=== PATIENT | male | born 1945 | race Caucasian/White ===

== ENCOUNTER 2020-07-28 13:25 | Outpatient (CLI) | payer MEDICARE, OTHER, SELFPAY ==
--- NOTE | ~2020-07-28 | CT_ITS ---
EXAMINATION: CT abdomen pelvis wo con DATE: 07/28/2020 14:01 INDICATION: Kidney calculus TECHNIQUE: Computed tomography (CT) of the abdomen and pelvis was performed without intravenous contr ast. Automated exposure control and iterative reconstruction technique were employed. Exam dose: 411 .04 mGy-cm total exam DLP. COMPARISON: April 27, 2021 KUB 12/28/[address] abdomen pelvis FINDINGS: Mild discoid atelectasis or scarring at the left lung base. The lung bases otherwise are cl ear. Coronary artery atherosclerosis. Trace pericardial fluid. No pleural effusion. Very small sliding hiatal hernia. Two stones are again noted in the dependent aspect of the gallbladder near the gallbladder neck. No g allbladder wall thickening or pericholecystic fluid or stranding. No bile duct dilatation. No hepatic space-occupying mass lesion. Normal splenic size. No pancreatic mass lesion or calcification or ductal dilatation. Normal morphology of the adrenal glands. Faint pinpoint nonobstructing lower pole right renal calculus. 4.5 mm nonobstructing upper pole left renal calculus. No ureteral calculus or hydronephrosis is noted on either side. There is moderate thickening of the urinary bladder wall. There is prostate enlargement and calcifica tion. There is extensive abdominal aortic calcification but no abdominal aortic aneurysm. There is calcific ation of the iliac and femoral arteries. No intraperitoneal or retroperitoneal or pelvic mass lesion or adenopathy or ascites. Small jay fat-containing left inguinal hernia. There is diverticula of the sigmoid and descending colon; no CT evidence of diverticulitis. No bowel obstruction, bowel wall thickening, pneumatosis or intraperitoneal free air is detected. Some fluid l evels are present in the right colon. Right hip arthroplasty. No suspicious osteolytic or osteoblastic lesions are noted. IMPRESSION: Cholelithiasis Nonobstructing calculus of each kidney; no ureteral calculus or hydroureteronephrosis Prostatomegaly and calcification and mild diffuse thickening of the urinary bladder wall Diverticulosis of the left colon; no CT evidence of diverticulitis Very small sliding hiatal hernia Reviewed, dictated and finalized at [facility]. Reviewed, dictated and finalized at location A. ORKING ADMINISTRATOR IMPRESSION: Cholelithiasis Nonobstructing calculus of each kidney; no ureteral calculus or hydroureteronep hrosis Prostatomegaly and calcification and mild diffuse thickening of the urinary jocelyn dder wall Diverticulosis of the left colon; no CT evidence of diverticulitis Very small sliding hiatal hernia
--- NOTE | ~2020-07-28 | XR_ITS ---
XR abdomen/kub 1V DATE: 07/28/2020 13:49 INDICATION: Kidney calculus TECHNIQUE: AP projection, 2 views COMPARISON: 05/17/2011 KUB July 28, [address] abdomen FINDINGS: An approximately 3 mm calcified stone is noted overlying the upper pole left kidney. A smal l calcification overlying the medial upper pole of the left kidney is likely due to to left renal art erial calcification. Very faint small calcification overlying the lower pole the right kidney likely corresponds to the pi npoint lower pole right renal calculus noted on the current CT examination. No other apparent urinary tract calcified calculus is noted. There are bilateral calcified pelvic phl eboliths and sacroiliac or any calcifications. There are 2 approximately 6-7 mm calcified gallstones. The psoas shadows are intact. No visceromegaly is evident. There is no evidence of bowel obstruction. Right bipolar hip prosthesis. IMPRESSION: Cholelithiasis Small nonobstructing upper pole left renal calcified calculus Very small faint calcified calculus of the lower pole of the right kidney Reviewed, dictated and finalized at [facility]. Reviewed, dictated and finalized at [facility]. ICE EMPLOYEE
== END 2020-07-28 13:26 | disposition home or self-care (01) ==
LOC: ANHIMG 13:34
PROVIDERS: Visit Provider Urology
DX: N20.0 Calculus of kidney (principal); K80.20 Calculus of gallbladder without cholecystitis without obstruction; K44.9 Diaphragmatic hernia without obstruction or gangrene; K57.30 Diverticulosis of large intestine without perforation or abscess without bleeding; N40.0 Benign prostatic hyperplasia without lower urinary tract symptoms
CPT/HCPCS: 74018; 74176

== ENCOUNTER 2022-01-04 12:20 | Outpatient (CLI) | payer MEDICARE, OTHER, SELFPAY ==
--- NOTE | ~2022-01-04 | XR_ITS ---
XR shoulder LT min 2V DATE: 01/04/2022 12:45 INDICATION: Left shoulder pain; injury 6 weeks ago TECHNIQUE: 4 views COMPARISON: None FINDINGS: There are prominent chronic calcifications in the region of the rotator cuff suggesting meredith cific tendinitis. There is mild degenerative change at the acromion clavicular joint. There is mild osteoarthritis at t he glenohumeral joint. No fracture, dislocation, periosteal reaction or bone destruction is detected. IMPRESSION: Suggestion of prominent calcific tendinitis of left rotator cuff Mild degenerative change at the left acromioclavicular joint Mild left glenohumeral osteoarthritis Reviewed, dictated and finalized at location [facility].
== END 2022-01-04 12:21 | disposition home or self-care (01) ==
PROVIDERS: PCP Family Medicine; Visit Provider Physician Assistant Surgical
DX: M25.512 Pain in left shoulder (principal); M19.012 Primary osteoarthritis, left shoulder
CPT/HCPCS: 73030

== ENCOUNTER → 2022-08-30 10:32 | Outpatient (CLI) | payer MEDICARE, OTHER, SELFPAY ==
--- NOTE | ~2022-08-30 | MR_ITS ---
EXAMINATION: MR shoulder LT wo con DATE: 08/30/2022 11:10 INDICATION: Left shoulder pain. TECHNIQUE: Magnetic resonance imaging (MRI) of the left shoulder was performed without intravenous co ntrast. Sequences included axial PD-weighted FS FSE, coronal oblique PD-weighted FS FSE and T2-weight ed FS FSE, and sagittal oblique T2-weighted FS FSE and T1-weighted FSE. COMPARISON: Left shoulder radiographs 08/18/2022 FINDINGS: Coracoacromial arch: The acromion undersurface is flat in morphology (type I). There is severe acromioclavicular joint ost eoarthritis including inferiorly directed osteophytes. There is mild subacromial/subdeltoid bursitis. Rotator cuff: There is mild supraspinatus and infraspinatus tendinopathy. There are calcifications of the supraspin atus tendon. Teres minor tendon is normal. Subscapularis tendon is normal. The rotator cuff muscle be llies are normal. Biceps tendon and glenoid labrum: Biceps tendon is in bicipital groove. There is mild intra-articular biceps tendinopathy. There are de generative tears of the glenoid labrum. Fluid: There is a small glenohumeral joint effusion. Bones/cartilage: There is shallow partial-thickness cartilage loss of glenoid. There is deep partial thickness cartila ge loss of humeral head involving the central articular surface. IMPRESSION: 1. Mild rotator cuff tendinopathy. Calcific tendinitis of supraspinatus tendon. 2. Moderate glenohumeral joint chondrosis. 3. Mild intra-articular biceps tendinopathy. 4. Severe acromioclavicular joint osteoarthritis. 5. Small glenohumeral joint effusion. 6. Mild subacromial/subdeltoid bursitis. Reviewed, dictated and finalized at location A. R CHEF
== END ==
PROVIDERS: PCP Family Medicine; Visit Provider Physician Assistant Surgical
DX: M19.012 Primary osteoarthritis, left shoulder (principal); M75.52 Bursitis of left shoulder
CPT/HCPCS: 73221

== ENCOUNTER → 2022-11-01 12:03 | Outpatient (CLI) | payer MEDICARE, OTHER, SELFPAY | PROVIDERS: PCP Family Medicine; Visit Provider Physician Assistant Medical | DX: M79.671 Pain in right foot (principal) | CPT/HCPCS: 73630 ==

== ENCOUNTER → 2023-05-11 12:28 | Outpatient (CLI) | payer MEDICARE, OTHER, SELFPAY ==
--- NOTE | ~2023-05-11 | XR_ITS ---
Clinical Indication: Osteoarthritis PA and lateral views of the chest: Comparison: 10/17/2018 Findings: The lungs are clear, without evidence of focal consolidation or pleural effusion. Cardiome diastinal silhouette is within normal limits. Bones and soft tissues are unremarkable. Impression: Normal chest. Reviewed, dictated and finalized at [facility]. GHT CAR REPAIRER Impression: Normal chest.
--- NOTE | ~2023-05-11 | XR_ITS ---
XR hand BI arthritis min 3V DATE: 05/11/2023 13:17 INDICATION: Polyarthralgia. Osteoarthritis. TECHNIQUE: 4 views of each hand. COMPARISON: None FINDINGS: Left hand: There is mild particular spurring at the first carpometacarpal and second and third metacarpophalange al joints. There is mild particular spurring at the interphalangeal joint of the first digit. There i s narrowing at the distal interphalangeal joints. Benign cyst of proximal navicular bone. No fracture, dislocation, periosteal reaction or bone destruction or erosive change or chondrocalcino sis is noted. Right hand: There is moderately prominent joint space narrowing and mild periarticular spurring at the third meta carpophalangeal joint consistent with osteoarthritis. There is narrowing between the navicular and ca pitate bones. There is narrowing at the distal interphalangeal joint of the fifth digit. Benign cyst of the lateral head of the third metacarpal bone. No fracture, dislocation, periosteal reaction or bone destruction, erosive change or chondrocalcinosi s. IMPRESSION: Bilateral osteoarthritis Reviewed, dictated and finalized at location B. ERYMAN ASSISTANT IMPRESSION: Bilateral osteoarthritis
== END ==
DX: R76.8 Other specified abnormal immunological findings in serum (principal); M25.60 Stiffness of unspecified joint, not elsewhere classified; M19.041 Primary osteoarthritis, right hand; M19.042 Primary osteoarthritis, left hand
CPT/HCPCS: 71046; 73130

== ENCOUNTER 2023-11-28 14:29 | Outpatient (CLI) | payer MEDICARE, OTHER, SELFPAY ==
--- NOTE | ~2023-11-28 | XR_ITS ---
Lumbosacral Spine: AP, oblique, and lateral views Clinical History: Pain Findings: The normal lordotic curve is maintained. The vertebral bodies and posterior elements are i ntact. The intervertebral disc spaces are preserved. There is advanced facet arthropathy throughout the lumbar spine, especially from L3 through S1. The sacroiliac joints are normally outlined. Round c alcific structures in the right mid abdomen suggests gallstones or possibly renal stones. Impression: Advanced facet arthropathy, as above. Suspected gallstones or possibly right renal stones. Reviewed, dictated and finalized at location [facility]. Impression: Advanced facet arthropathy, as above. Suspected gallstones or possibly right renal stones.
== END 2023-11-28 14:30 ==
LOC: MICIMG 14:31
PROVIDERS: PCP Family Medicine; Visit Provider Physician Assistant Medical
DX: M47.897 Other spondylosis, lumbosacral region (principal)
CPT/HCPCS: 72110

== ENCOUNTER 2024-09-10 13:00 | Outpatient (CLI) | payer MEDICARE, OTHER, SELFPAY ==
--- NOTE | ~2024-09-10 | XR_ITS ---
XR elbow LT 2V Ordering provider: Sarahi Pelletier PA-C History: . S51.009A - Unspecified open wound of unspecified elbow, i... . Comparison: None. FINDINGS: BONES: No acute fracture or dislocation. JOINT SPACES: Normal. SOFT TISSUES: Air with soft tissue swelling is seen in the subcutaneous tissues posteriorly which may indicate laceration. No definite joint effusion. IMPRESSION: No acute osseous abnormality left elbow. Reviewed, dictated and finalized at location A.
== END 2024-09-10 13:01 | disposition home or self-care (01) ==
PROVIDERS: PCP Family Medicine; Visit Provider Student in an Organized Health Care Education/Training Program
DX: S51.002A Unspecified open wound of left elbow, initial encounter (principal); X58.XXXA Exposure to other specified factors, initial encounter
CPT/HCPCS: 73070

== ENCOUNTER 2024-10-23 08:50 | Outpatient (CLI) | payer MEDICARE, OTHER, SELFPAY ==
--- NOTE | 2024-10-23 08:58 | ECG_ITS ---
Test Date: 2024-10-23 09:11:06 Measurements Intervals Davis Rate: 84 P: 20 CA: 177 QRS: -18 QRSD: 82 T: 94 QT: 332 QTc: 393 Interpretive Statements SINUS RHYTHM WITH OCCASIONAL SUPRAVENTRICULAR PREMATURE COMPLEXES LOW QRS VOLTAGE IN PRECORDIAL LEADS [QRS DEFLECTION < 1.0 mV IN CHEST LEADS] INFERIOR MYOCARDIAL INFARCTION [40+ ms Q WAVE AND/OR ST/T ABNORMALITY IN II/aVF], PROBABLY OLD ANTEROSEPTAL MYOCARDIAL INFARCTION [40+ ms Q WAVE IN V1-V4], OF INDETERMINATE AGE WARNING: DATA QUALITY MAY AFFECT INTERPRETATION No previous ECG available for comparison Electronically Signed On 10-24-2024 18:57:48 CDT by Tristan Anna
--- OUTSIDE RECORDS SUMMARY | 2024-10-23 09:06 | XMS_ITS | Clinical Summary ---
Author Organization [facility] Address [facility] [facility] [place] [address] Care Team Providers Care Senior Cognos Developer Name Role Phone Michelle Garcia MD Primary Care Provider [phone] eDnnis Christian MD Unavailable Source Comments [facility],non-owned Affiliates and Associated Physician Practices is amultiple site organization consisting of ambulatory clinics and hospital sitesin [place], [place], [place] and [place]. This disclosure is being madepursuant to the Care Everywhere program and may not contain all information available regarding this patient. Last updated 18.[facility] Allergies No known active allergies Medications * Be aware that medications may not be up to date on this document. Alwaysverify current medications with the patient. Nutritional Supplements (STATINS SUPPORT PO) Active benzonatate (TESSALON) 200 MG capsuleIndications :Acute URI Take 1 capsule by mouth 3 times daily as needed for Cough 30 capsule 05/26/20 17 Active Additional Information Patient not taking.Reported on 07/07/2024 fluticasone propionate (FLONASE) 50 MCG/ACT nasal sprayIndications:A cute URI Douglas 2 sprays into each nostril once daily 1 bottles 05/26/20 17 Active Tamsulosin HCl (FLOMAX PO) Active DOXAZOSIN MESYLATE PO Active Citalopram Hydrobromide (CELEXA PO) Active ALLOPURINOL PO Activ e benzonatate (TESSALON) 200 MG capsule Take 1 capsule by mouth 3 times daily as needed for Cough 30 capsule 05/07/20 19 Active Additional Information Patient not taking.Reported on 07/07/2024 amoxicillin (Amoxil) 500 MG capsule 10/26/19 23 Active colchicine 0.6 MG tablet 12/06/19 23 Active Farxiga 10 MG tablet Take 1 (one) tablet by mouth once daily 09/25/19 24 Active finasteride (Proscar) 5 MG tablet Take 1 (one) tablet by mouth at bedtime 07/17/19 24 Active OneTouch Ultra test strip USE TO CHECK BLOOD SUGAR EVERY DAY 07/12/19 24 Active metFORMIN ER 24hr (Glucophage XR) 500 MG tablet 09/23/19 24 Active rosuvastatin (Crestor) 20 MG tablet 08/29/19 24 Active triamcinolone acetonide (Kenalog) 0.1 % cream APPLY TOPICALLY TO THE AFFECTED AREA TWICE DAILY 01/15/20 24 Active predniSONE (Deltasone) 10 MG tablet 40mg po daily x3, then 30mg po daily x3, then 20mg po daily x3, then 10mg po daily x3. 30 tablet 01/30/20 24 Active Additional Information Patient not taking.Reported on 07/07/2024 indapamide (Lozol) 2.5 MG tablet TAKE 1 TABLET BY MOUTH DAILY IN THE MORNING 04/26/20 24 Active clobetasol (Temovate) 0.05 % ointment APPLY TOPICALLY TO THE AFFECTED AREA TWICE DAILY 06/05/20 24 Active doxycycline hyclate (Vibramycin) 100 MG capsule 04/29/20 24 Active mupirocin (Bactroban) 2 % ointment APPLY TOPICALLY TO THE AFFECTED AREA TWICE DAILY 04/10/20 24 Active lisinopril (Prinivil; Zestril) 20 MG tablet Take 1 (one) tablet by mouth once daily 04/16/20 24 Active celecoxib (CeleBREX) 100 MG capsuleIndications :Polyarthralgia,Isela int stiffness,Osteoart hritis of multiple joints, unspecified osteoarthritis type TAKE 1 CAPSULE BY MOUTH TWICE DAILY 60 capsule 2 07/22/19 25 Active Active Problems No known active problems Family History Medical History Relation Name Comments CVA Father Relation Name Status Comments Father Mother Social History Tobacco Use Types Packs/Day Years Used Date Smoking Tobacco: Former Pipe Q uit: 1974 Smokeless Tobacco: Never PHQ-2 Answer Date Recorded Patient Health Questionnaire-2 Score 0 01/30/2024 Sex and Gender Information Value Date Recorded Sex Assigned at Not on file Legal Sex Male 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 Gender Identity Not on file Sexual Orientation Not on file Last Filed Vital Signs Vital Sign Reading Time Taken Comments Blood Pressure 132/70 07/07/2024 11:23 AM BANQUET KITCHEN SUPERVISOR Pulse 96 07/07/2024 11:23 AM BANQUET KITCHEN SUPERVISOR Temperature 37.3 C (99.1 F) 05/07/2019 11:38 AM BANQUET KITCHEN SUPERVISOR Respiratory Rate 18 07/07/2024 11:23 AM BANQUET KITCHEN SUPERVISOR Oxygen Saturation 98% 07/07/2024 11:23 AM BANQUET KITCHEN SUPERVISOR Inhaled Oxygen Concentration - - Weight 96.2 kg (212 lb) 07/07/2024 11:23 AM BANQUET KITCHEN SUPERVISOR Height 172.7 cm (5' 8 ) 07/07/2024 11:23 AM BANQUET KITCHEN SUPERVISOR Body Mass Index 32.23 07/07/2024 11:23 AM BANQUET KITCHEN SUPERVISOR Plan of Treatment Upcoming Encounters Date Type Department Care Team (Late st Contact Info) Description 11/05/2024 11:00 AM CDT Office Visit [facility] - Rheumatology [address] [place] [address] [place] [id number] [facility] [address] [place] [address] Health Maintenance Due Date Last Done Comments MEDICARE AWV 12 MONTHS 1945 DTAP/TDAP/TD VACCINES (1 - Tdap) 01/07/1964 PNEUMOCOCCAL VACCINE 50+ (1 of 1 - PCV) 1995 ZOSTER VACCINE (1 of 2) 1995 Respiratory Syncytial Virus (RSV) Vaccine Pt: or over 60 yrs (1 - 1-dose 75+ series) 01/07/2020 COVID-19 VACCINE (3 - 2023-2 5 season) 2024 08/23/2020, 07/26/2020 DEPRESSION SCREENING 06/25/2024 01/30/2024 INFLUENZA VACCINE (Season Ended) 2025 05/22/2007, 06/06/2006 HEPATITIS B VACCINE Aged Out No longe r eligible based on patient's age to complete this topic HIB VACCINE Aged Out No longer eligi ble based on patient's age to complete this topic HPV VACCINE Aged Out No longer eligi ble based on patient's age to complete this topic MENINGOCOCCAL (Group B) VACCINE SHARED DECISION-MAKING Aged Out No longer eligible based on patient's age to complete this topic MENINGOCOCCAL GROUPS A/C/Y/W VACCINE Aged Out No longer eligible b ased on patient's age to complete this topic Insurance MEDIC[place] [id number] [facility] Care Teams Senior Cognos Developer Relationship Specialty Start Date End Date Michelle Garcia MD [address] [place], [place] [id number] PCP - General Family Medicine 7/31/23 [place] [address] [place] [id number] Rheumatology 10/01/23
--- OUTSIDE RECORDS SUMMARY | 2024-10-23 09:06 | XMS_ITS | Encounter Summary ---
Author Organization [facility] Address [address] [place] [address] Care Team Providers Care Service Specialist Name Role Phone Michelle Garcia MD Primary Care Provider [phone] Dennis Christian MD Unavailable Encounter Details Date Type Department Care Team (Late Contact Info) Description 05/26/2024 Lab Requisition [facility] - DermPath Lab [address] [place] [phone] [place] [address] [address] Social History Tobacco Use Types Packs/Day Years Used Date Smoking Tobacco: Former Pipe Q uit: 1975 Smokeless Tobacco: Never PHQ-2 Answer Date Recorded Patient Health Questionnaire-2 Score 0 01/30/2024 Sex and Gender Information Value Date Recorded Sex Assigned at Not on file 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 Gender Identity Not on file Sexual Orientation Not on file documented as of this encounter Plan of Treatment Upcoming Encounters Date Type Department Care Team (Late Contact Info) Description 11/05/2024 11:00 AM CDT Office Visit [facility] - Rheumatology [address] [address] [place] [address] [address] documented as of this encounter Procedures Procedure Name Priority Date/Time Associated Diagnosis Comments DERMATOPATHOLOGY Routine 05/21/2024 3:33 AM METAL FITTER documented in this encounter Results * DERMATOPATHOLOGY (05/21/2024 3:33 AM METAL FITTER) Case Report Dermatopathology Report Case: [id number] Authorizing Provider: Arnold Hahn MD Collected: 05/21/2024 03:33 AM Ordering Location: [facility] - Received: 05/26/2024 02:02 PM DermPath Lab Pathologist: Harleen Mckinney MD Specimens: A) - Skin, left proximal forearm B) - Skin, left distal forearm C) - Skin, right lateral elbow 4 2:03 PM [facility] Final Diagnosis Specimen A. SKIN, left proximal forearm: SPONGIOTIC DERMATITIS IN ASSOCIATION WITH HEALING SKIN CHANGES (L30.8) (see microscopic description and comment) Specimen B. SKIN, left distal forearm: HYPERKERATOSIS, MILD PAPILLOMATOSIS, AND ACANTHOSIS (L82.1) (see microscopic description and comment) Specimen C. 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 The specimen consists of a punch biopsy measuring 4x4x5 mm. Jar 0. Specimen B: Received is one formalin filled container labeled with the patient's name and designated left distal forearm. The specimen consists of a punch biopsy measuring 4x4x3 mm. Jar 0. Specimen C: Received is one formalin filled container labeled with the patient's name and designated right lateral elbow. The specimen consists of a shave biopsy measuring 8x7x1 mm. Jar 0. 4 2:03 PM [facility] Microscopic Description Specimen A. SKIN, left proximal forearm: There is hyperkeratosis and mild spongiosis of the epidermis. In the dermis there is a mainly superficial perivascular lymphoid infiltrate. Eosinophils are not seen. Grocott's methenamine silver (GMS) stain is negative for fungal elements in the sections examined. CD3 highlights T cells, that show a CD4:CD8 ratio of approximately 3:1. There is epidermal hyperplasia beneath which there are vascular proliferation, fibroblasts, and an edematous stroma. COMMENT: The histologic differential diagnosis includes an eczematous dermatitis, and changes consistent with healing skin. The immunoprofile of the T cell infiltrate does not support a diagnosis of cutaneous T-cell lymphoma; however, if there is continued clinical concern for cutaneous T-cell lymphoma consideration should be given to a re biopsy of a sun protected area that has not been treated for two to three weeks. Specimen B. SKIN, left distal forearm: Sections show hyperkeratosis, papillomatosis, hypergranulosis, and acanthosis. Grocott's methenamine silver (GMS) stain is negative for fungal elements in the sections examined. COMMENT: If these histologic features represent a more localized process, these histological findings can be seen in a verruca vulgaris or a seborrheic keratosis. If they represent a more diffuse process, the histologic differential diagnosis includes lichen simplex chronicus, acanthosis nigricans, and confluent and reticulated papillomatosis of Gougerot and Carteaud (CARP). Clinical correlation is recommended. Specimen C. SKIN, right lateral elbow: The epidermis is mildly acanthotic. There is a lichenoid infiltrate with vacuolar changes of basilar keratinocytes and scattered necrotic keratinocytes. Sections show abundant melanin within melanophages around the superficial vascular plexus. In addition, in the thickened papillary dermis, there are collections of eosinophilic homogeneous material that is highlighted by high molecular weight cytokeratin and is focally positive with Congo Red stain. COMMENT: The histologic differential diagnosis includes a lichen planus-like keratosis with prominent colloid bodies, and lichen amyloidosis. Clinical correlation is recommended. 4 2:03 PM [facility] Disclaimer An external and internal positive and negative controls are appropriate for the histochemical, immunohistochemical and immunofluorescence stain(s) in this case (if any), except where stated explicitly. The performance characteristics of the stain(s) cited in this report were developed and its performance characteristic determined by the Dermatopathology Laboratory at [facility] directed by Dr. Santos Savage. These tests need not be, and therefore are not, approved by the [place] Food and Drug Administration. The tests are used for clinical purposes. Billing Codes Specimen Charges Stain Charges 31781 80578 79354 1 1 1 92833 67830 52792 74518 01380 66451 29401 1 1 1 1 1 1 1 4 2:03 PM [facility] Embedded Images 4 2:03 PM [facility] Pathology/Cytology TISSUE SPECIMEN FROM SKIN / Unknown 05/21/2024 3:33 AM METAL FITTER 05/26/2024 2:02 PM METAL FITTER Miscellaneous samples (specimen) TISSUE SPECIMEN FROM SKIN / Unknown 05/21/2024 3:33 AM METAL FITTER 05/26/2024 2:02 PM METAL FITTER Miscellaneous samples (specimen) TISSUE SPECIMEN FROM SKIN / Unknown 05/21/2024 3:33 AM METAL FITTER 05/26/2024 2:02 PM METAL FITTER Arnold Hahn MD LAB - PATHOLOGY/CYTOLOGY O RDERABLES Final Result DERMATOPATHOLOGY LABORATORY [facility] - Department of Dermatology [facility] [address] [place] [address], [address] [phone] documented in this encounter Visit Diagnoses Not on filedocumented in this encounter Care Teams Service Specialist Relationship Specialty Start Date End Date Michelle Garcia MD [address] [place] [address] PCP - General Family Medicine 01/22/23 [place] [address] [place] [phone] Rheumatology 10/01/23 documented as of this encounter
--- OUTSIDE RECORDS SUMMARY | 2024-10-23 09:06 | XMS_ITS | Encounter Summary ---
Author Organization [facility] Address [address] [facility] [place] [address] Care Team Providers Care Urgent Care Physician Name Role Phone Michelle Garcia MD Primary Care Provider [phone] Dennis Christian MD Unavailable Encounter Details Date Type Department Care Team (Late st Contact Info) Description 05/09/2024 Lab Requisition [facility] - DermPath Lab [address] [place] [phone] [place] [address] [address] Social History Tobacco Use Types Packs/Day Years Used Date Smoking Tobacco: Former Pipe Q uit: 1975 Smokeless Tobacco: Never PHQ-2 Answer Date Recorded Patient Health Questionnaire-2 Score 0 01/30/2024 Sex and Gender Information Value Date Recorded Sex Assigned at Not on file 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 Gender Identity Not on file Sexual Orientation Not on file documented as of this encounter Plan of Treatment Upcoming Encounters Date Type Department Care Team (Late Contact Info) Description 11/05/2024 11:00 AM CDT Office Visit [facility] - Rheumatology [address] [address] [place] [address] [address] documented as of this encounter Procedures Procedure Name Priority Date/Time Associated Diagnosis Comments DERMATOPATHOLOGY Routine 05/08/2024 3:33 AM TURBINE ROOM ATTENDANT documented in this encounter Results * DERMATOPATHOLOGY (05/08/2024 3:33 AM TURBINE ROOM ATTENDANT) Case Report Dermatopathology Report Case: [id number] Authorizing Provider: Arnold Hahn MD Collected: 05/08/2024 03:33 AM Ordering Location: [facility] - Received: 05/09/2024 01:30 PM DermPath Lab Pathologist: Harleen Mckinney MD Specimen: Skin, left proximal forearm 1:44 PM [facility] Final Diagnosis Specimen A. SKIN, left proximal forearm: ULCER WITH UNDERLYING DERMAL ABSCESS (L98.499) (see microscopic description and comment) 1:44 PM [facility] DERMAT[facility]ATHOLOGY [facility] Clinical History Rash; R/O Eczema, Contact Dermatitis, CTCL, Bullous Pemphigoid 1:44 PM [facility] Gross Description Specimen A: Received is one formalin filled container labeled with the patient's name and designated left proximal forearm. The specimen consists of a punch biopsy measuring 4x4x3 mm. Jar 0. 1:44 PM [facility] Microscopic Description Specimen A. SKIN, left proximal forearm: There is an ulcer, beneath which there are vascular proliferation, fibroblasts, and an edematous stroma. Sections also show a collection of neutrophils in the dermis. Scattered lymphocytes and histiocytes are also present in the dermis. Eosinophils are not seen. Some of the neutrophils focally infiltrate dermal vascular lamar, favored to be secondary to adjacent abscess and ulceration. Tissue Gram stain is negative for bacteria in the sections examined. Grocott's methenamine silver (GMS) stain fails to highlight fungal elements in the available sections. Additional deeper sections were obtained and reviewed. COMMENT: The clinical images provided by the clinician are reviewed. The histologic differential diagnosis includes an infectious process despite negative Gram and GMS stains, a ruptured follicle or cyst, and less likely a neutrophilic dermatosis. Clinical correlation with culture is recommended if clinically indicated. The characteristic features of bullous pemphigoid are not seen in this specimen; however, if clinical concern for an autoimmune bullous disease persists, consideration could be given to submitting tissue for direct immunofluorescence. This case was also reviewed by Dr. Anna Woods, who agrees. Additional deeper sections were obtained and reviewed. 1:44 PM [facility] Disclaimer An external and internal positive and negative controls are appropriate for the histochemical, immunohistochemical and immunofluorescence stain(s) in this case (if any), except where stated explicitly. The performance characteristics of the stain(s) cited in this report were developed and its performance characteristic determined by the Dermatopathology Laboratory at [facility], directed by Dr. Santos Savage. These tests need not be, and therefore are not, approved by the [place] Food and Drug Administration. The tests are used for clinical purposes. Billing Codes Specimen Charges Stain Charges 89769 1 86040 55327 1 1 4 1:44 PM [facility] Embedded Images 1:44 PM [facility] Pathology/Cytolo gy TISSUE SPECIMEN FROM SKIN / Unknown 05/08/2024 3:33 AM TURBINE ROOM ATTENDANT 05/09/2024 1:30 PM TURBINE ROOM ATTENDANT Arnold Hahn MD LAB - PATHOLOGY/CYTOLOGY O CRUZ Final Result DERMATOPATHOLOGY LABORATORY [facility] - Department of Dermatology [facility] Specialized Medicine [address] [place] [address], [address] [phone] documented in this encounter Visit Diagnoses Not on filedocumented in this encounter Care Teams Urgent Care Physician Relationship Specialty Start Date End Date Michelle Garcia MD [address] [place] [address] PCP - General Family Medicine 01/22/23 [place] [address] [place] [phone] Rheumatology 10/01/23 documented as of this encounter
--- OUTSIDE RECORDS SUMMARY | 2024-10-23 09:06 | XMS_ITS | Clinical Summary ---
Author Organization [facility] Address [address] [address] Phone Care Team Providers Care Hvac Designer Name Role Phone Rui Reyez MD Primary Care Provider [phone] Kailash Amaral DO Unavailable [phone] Allergies No known active allergies Medications polyethylene glycol (MIRALAX) Powder Use entire 255g bottle with 64oz of clear liquid as directed for colonoscopy prep. 255 g 0 6 Active atorvastatin (LIPITOR) 20 MG Tablet Take 1 Tab by mouth daily. 0 6 Active citalopram (CELEXA) 20 MG Tablet Take 1 Tab by mouth daily. 1 6 Active doxazosin (CARDURA) 4 MG Tablet Take 1 Tab by mouth nightly. 0 6 Active indapamide (LOZOL) 2.5 MG Tablet Take 1 Tab by mouth daily. 2 6 Active tamsulosin (FLOMAX) 0.4 MG Capsule Take 1 Cap by mouth daily. 0 6 Active quinapril (ACCUPRIL) 40 MG Tablet Take 1 Tab by mouth daily. 0 6 Active allopurinol (ZYLOPRIM) 300 MG Tablet Take 1 Tab by mouth daily. 0 7 Active lisinopril (ZESTRIL) 20 MG Tablet Take 20 mg by mouth daily. 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 Gender Identity Not on file Sexual Orientation Not on file Plan of Treatment Health Maintenance Due Date Last Done Comments Hepatitis C Virus (HCV) Screening 1945 Zoster Immunization (1 of 2) 1995 Pneumococcal Immunization (5 0+ years) (2 of 2 - PCV) 03/23/2017 03/23/2016 Respiratory Syncytial Virus (RSV) Immunization (Adult) (1 - 1-dose 75+ series) 01/07/2020 Influenza Immunization (#1) 2024 04/09/2019 SARS-COV-2 Immunization (2 - season) 2024 06/26/2021 DTaP/Tdap/Td Immunization Discontinued 2014, 03/28/2005 TdaP Immunization Completed 03/08/2015 Pneumococcal Immunization Combined Discontinued 03/23/2016 Colonoscopy High Risk Discontinued 06/29/2016 Colonoscopy Discontinued 06/29/2016 Colorectal Cancer Screening Discontinued Cologuard Discontinued Hepatitis B Immunization Aged Out No longer eligible based on patient's age to complete this topic Immunochemical Fecal Occult Blood Discontinued Meningococcal Immunization (ACWY) Aged Out No longer eligible based on patient's age to complete this topic Rotavirus Immunization Aged Out No lo nger eligible based on patient's age to complete this topic Procedures Procedure Name Priority Date/Time Associated Diagnosis Comments COLONOSCOPY Routine 06/29/2016 from Last 3 Months or Most Recently Relevant to Health Maintenance Results * COLONOSCOPY (06/29/2016) Rui Reyez MD PROCEDURE/MINOR SURGICAL ORDE BETSY Final Result from Last 3 Months or Most Recently Relevant to Health Maintenance Insurance MEDICARE Care Teams Hvac Designer Relationship Specialty Start Date End Date Rui Reyez MD [address] [place] [address] PCP - General Family Medicine 07/04/16 Kailash Amaral DO [address] [place] [address] Gastroenterology 07/04/16
--- OUTSIDE RECORDS SUMMARY | 2024-10-23 09:07 | XMS_ITS | Referral Summary ---
Author Organization [facility] [address] [facility] [address] Address [address] [place] [address] Care Team Providers Care Yard Pilot Name Role Phone Michelle Garcia MD Primary Care Provider [phone] Encounters Date Type Department Care Team Description 10/06/2024 Telephone [facility] Cardiology [address] [place] [address] Alan Wall MD from Last 3 Months Allergies No known active allergies Medications indapamide (LOZOL) 2.5 mg tablet TK 1 T PO QD IN THE MORNING 0 9 Active allopurinol (ZYLOPRIM) 300 mg tablet TK 1 T PO QD 0 9 Active finasteride (PROSCAR) 5 mg tablet 2 tablets (10 mg total) 3 9 Active metFORMIN XR (GLUCOPHAGE XR) 500 mg 24 hr tablet TK 4 TS PO QD WITH THE EVENING MEAL. TITRATE UP SLOWLY PER INSTRUCTIONS FOR TYPE 2 DIABETES 3 9 Active tamsulosin (FLOMAX) 0.4 mg extended release capsule 1 capsule (0.4 mg total) Active Farxiga 10 mg tablet Take 1 tablet (10 mg total) by mouth daily 4 Active lisinopriL (PRINIVIL,ZESTR [place]) 40 mg tablet Take 1 tablet (40 mg total) by mouth daily 4 Active celecoxib (CeleBREX) 100 mg capsule Take 1 capsule (100 mg total) by mouth 2 (two) times a day 4 Active rosuvastatin (CRESTOR) 20 mg tablet TAKE 1 TABLET(20 MG) BY MOUTH DAILY 90 tablet 1 5 Active Active Problems Problem Noted Date Diagnosed Date Nonrheumatic aortic valve stenosis 11/11/2018 Pulmonary hypertension 11/11/2018 Pre-operative clearance 10/23/2018 Hypertension associated with diabetes 10/23/2018 Hyperlipidemia associated with type 2 diabetes m ellitus 10/23/2018 PAC (premature atrial contraction) 10/23/2018 Abnormal ECG 10/23/2018 Systolic ejection murmur 10/23/2018 Social History Tobacco Use Types Packs/Day Years Used Date Smoking Tobacco: Never Smokeless Tobacco: Never Tobacco Cessation:Counseling Given: Not Answered Personal Safety Answer Date Recorded Getting School Help Needed Not on file 08/23 Sex and Gender Information Value Date Recorded Sex Assigned at Not on file 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:57 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 Gender Identity Not on file Sexual Orientation Not on file Last Filed Vital Signs Vital Sign Reading Time Taken Comments Blood Pressure 102/60 10/23/2023 1:04 PM CDT Pulse 84 10/23/2023 1:04 PM CDT Temperature - - Respiratory Rate 16 09/29/2020 2:00 PM CDT Oxygen Saturation 96% 10/23/2023 1:04 PM CDT Inhaled Oxygen Concentration - - Weight 95.7 kg (211 lb) 10/23/2023 1:04 PM CDT Height 172.7 cm (5' 8 ) 10/23/2023 1:04 PM CDT Body Mass Index 32.08 10/23/2023 1:04 PM CDT Plan of Treatment Not on file Procedures Procedure Name Priority Date/Time Associated Diagnosis Comments POCT LIPID PANEL Routine 09/29/2020 4:49 PM CDT Hyperlipidemia associated with type 2 diabetes mellitus (HCC) from Last 3 Months or Most Recently Relevant to Health Maintenance Results * POCT lipid panel (09/29/2020 4:49 PM CDT) Cholesterol, POC 139 mg/dL HDL, POC 25 mg/dL Triglycerides, POC 142 mg/dL LDL Cholesterol POC 86 mg/dL Non-HDL Cholesterol, POC 114 mg/dL Capillary blood 09/29/2020 4 :49 PM CDT Alan Wall MD POINT OF CARE TEST ORDERA BLES Final Result from Last 3 Months or Most Recently Relevant to Health Maintenance Insurance COMMERCIAL GENERIC MEDICARE [employer] MEDICARE COMMERCIAL GENERIC FOR LIFE Care Teams Yard Pilot Relationship Specialty Start Date End Date Michelle Garcia MD PCP - General Family Medicine 09/29/21
--- OUTSIDE RECORDS SUMMARY | 2024-10-23 09:07 | XMS_ITS | Clinical Summary ---
Author Organization [facility] [address] Address [address] [place] [address] Care Team Providers Care Development Vice President Name Role Phone Michelle Garcia MD Primary Care Provider [phone] Allergies No known active allergies Medications indapamide [...] Abnormal ECG 10/23/2018 Systolic ejection murmur 10/23/2018 Encounters Date Type Department Care Team Description 10/06/2024 Telephone [facility] Cardiology [address] [place] [address] Alan Wall MD from Last 3 Months Surgical History Surgery Date Site/Laterality Comments HERNIA REPAIR Medical History Medical History Date Comments Hyperlipidemia Heart murmur Hypertension Diabetes mellitus (HCC) Enlarged prostate Family History Medical History Relation Name Comments Stroke Brother Stroke Father Relation Name Status Comments Brother (Age 70) Father (Age 58) Mother (Age 47) Social History Tobacco Use Types Packs/Day Years Used Date Smoking Tobacco: Never Smokeless Tobacco: Never Tobacco Cessation:Counseling Given: Not Answered Personal Safety Answer Date Recorded Getting School Help Needed Not on file 08/23 Sex and Gender Information Value Date Recorded Sex Assigned at Not on file 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:57 AM CLERK RATING Gender Identity Not on file Sexual Orientation Not on file Obstetrics History Last Filed Vital Signs Vital Sign Reading [...] 10/23/2023 1:04 PM CDT Plan of Treatment Health Maintenance Due Date Last Done Comments Albumin Creatinine Ratio, Urine 1945 Depression Screening 1945 Fall Risk Assessment 1945 Hemoglobin A1C 1945 Hepatitis C Screening 1945 eGFR 1945 Dilated Eye Exam 1945 Foot Exam 1945 Hepatitis B Screening 1963 Zoster Vaccine (1 of 2) 1995 Well Visit 65+ 2010 Pneumococcal vaccine 65+ (2 of 2 - PCV) 03/23/2017 03/23/2016 Lipid Panel 09/29/2021 09/29/2020, 11/24, 10/23/2018, Additional history exists Covid-19 Vaccine (3 - 2023-2 5 season) 2024 08/23/2020, 07/26/2020 Influenza Vaccine (Season Ended) 2025 04/09/2019, 05/22/2007, 06/06/2006, Additional history exists DTaP/Tdap/Td Vaccine (2 - Td or Tdap) 03/08/2025 03/08/2015, 03/28/2005 Procedures Procedure Name Priority Date/Time Associated Diagnosis [...] to Health Maintenance Insurance COMMERCIAL GENERIC MEDICARE [employer] MEDICARE COMMERCIAL GENERIC FOR LIFE Care Teams Development Vice President Relationship Specialty Start Date End Date Michelle Garcia MD PCP - General Family Medicine 09/29/21
== END 2024-10-23 08:51 | disposition home or self-care (01) ==
LOC: ANHSURGERY 08:54
PROVIDERS: PCP Family Medicine; Visit Provider Orthopaedic Surgery
DX: I10 Essential (primary) hypertension (principal); Z01.818 Encounter for other preprocedural examination
CPT/HCPCS: 93005

== ENCOUNTER 2024-10-27 02:43 | Day surgery (SDC) | payer MEDICARE, OTHER, SELFPAY ==
--- NOTE | 2024-10-22 13:01 | PC.NURSE ---
Report to the Outpatient Waiting Room, entrance under the green pavilion located off [facility], at time _9:30 AM on date __10/27/24____. Planned Procedure Time: __11:30 AM .? Time changes happen often and if your time is changed the preop area will call you the afternoon before. - You and your visitor will be asked to self-screen and do not enter if you have any COVID symptoms. Please call surgeon if you need to reschedule. - A mask is optional within the hospital at this time. Patients may have clear liquids (water, carbonated beverages, clear teas, apple juice) until 3 hours prior to surgery ( 8:30 AM) with a maximum of 20 ounces. - No food from midnight until time of surgery and no smoking, or chewing tobacco (or any form of nicotine). No chewing gum, candy or mints. Take only the following medications with a SIP of water on the morning of surgery: ___NONE DO NOT STOP ANY OF YOUR OTHER PRESCRIPTION MEDICATIONS PRIOR TO SURGERY EXCEPT THE FOLLOWING Hold all vitamins and supplements for 3 days per anesthesiologist. Medications to discontinue per physician CELECOXIB PER DR KEITA Please no make-up, nail welsh, hairspray, perfume, deodorant, or body powder the day of surgery.? No jewelry (including any body piercings) or valuables the day of surgery, leave them at home.? Please take a shower or bath the night before, or the morning of, surgery with an antibacterial soap.? Wear comfortable, loose fitting clothing.? - Jewelry must be removed prior to entering the operating room.? Rings and piercings that are not removed may be cut off. - The hospital will not accept responsibility for valuables.? - Please leave all valuables, including medications, at home the day of surgery. If you are going home after surgery, a licensed ambulance driver paramedic must drive you home.? - NO public transportation without another adult if you receive anesthesia. - We recommend that an adult stay with you for 24 hours following discharge. - We also recommend that you do not drive, make important decision, drink alcoholic beverages, or take any drugs that were not prescribed by your health care provider for at least 24 hours after your discharge time. For Pediatric surgeries, we recommend two adults accompany the child home. Follow any additional instructions given to you from your surgeon. Telephone instructions given to ___PATIENT and asked if any additional questions and then verbalized understanding. Patient advised to call surgeon office or pre surgery nurse liaison [phone] if any additional questions.
[2024-10-22 13:26] VITALS: BMI 30.4
--- NOTE | 2024-10-23 07:33 | P.HP_ITS ---
H&P: HPI History of Present Illness Date/Time: 10/23/24 07:33 Chief Complaint: Patient has an of infected draining left olecranon bursa. He has had this for about 5 months now for some reason and has not been aggressively treated. With scabbed over for while but notes open and draining. He would like to have this addressed. Review of Systems Musculoskeletal: Musculoskeletal: Reports as per HPI, Reports arthralgias, Reports joint swelling and Reports stiffness [facility] Past Medical History Medical History Right shoulder pain Left knee DJD Left knee pain Left shoulder pain Aortic stenosis Hyperlipidemia Osteoarthritis Osteoarthritis of left knee Osteoarthritis of right knee Surgical History Surgical History History of left knee surgery (~1959) History of hernia repair (~1985) History of vasectomy (~1975) History of hydrocelectomy (~1986) History of hernia repair (~1952) History of total right hip arthroplasty (~03/2019) Family History Family History Father Cerebrovascular accident Other Family history of atrial fibrillation Family history of cardiovascular disease Social History Social History (Updated 10/21/24 @ 07:56 by Roula Turcios CMA) Smoking status: Never smoker Second hand tobacco smoke exposure: No Alcohol intake: current Drinks per week: 14 Alcohol use details: VODKA Substance use: never Do You Feel Safe in your Home?: Yes Lack of Transportation: No Lack of Food: Never True Current Housing: I Have Housing Concerned About Future Housing: No Difficulty Paying Gas/Electric Bills: No Difficulty Paying for Meds: No Currently Unemployed: No Education: Master's Degree or Higher Difficulty w/ Childcare or Family Care: No Living arrangements: with family Occupation/Education: retired Gender identity (if verbalized by the patient): Male Sexual Orientation (if Verbalized by the Patient): Straight or Heterosexual Spiritual care concerns: No Agree to blood products: Yes Meds Home Medications and Allergies Home Medications ?Medication ?Instructions ?Recorded ?Confirmed ?Type blood sugar diagnostic (Blood #10 ea 09/22/19 10/21/24 History Glucose Test strips) blood-glucose meter #1 ea 09/22/19 10/21/24 History lancets 30 gauge #25 ea 09/22/19 10/21/24 History finasteride 5 mg tablet 10 mg PO DAILY 11/01/22 10/22/24 History celecoxib 200 mg capsule (Celebrex) 200 mg PO DAILY #30 caps 07/04/23 10/22/24 Rx blood sugar diagnostic (OneTouch #100 ea 07/12/23 10/21/24 Rx Ultra Test strips) metformin 500 mg tablet,extended 2,000 mg (4 x 500 mg) PO QPM #360 09/25/23 10/22/24 Rx release 24 hr tabs allopurinol 300 mg tablet 300 mg PO DAILY #90 tabs 11/22/23 10/22/24 Rx triamcinolone acetonide 0.1 % 1 applic topical BID #80 grams 03/20/24 10/22/24 Rx topical cream lisinopril 20 mg tablet 20 mg PO DAILY #90 tabs 04/16/24 10/22/24 Rx tamsulosin 0.4 mg capsule See Rx Instructions .Route 08/05/24 10/22/24 Rx .COMPLEX #90 caps glimepiride 2 mg tablet 2 mg PO QAM #90 tabs 09/10/24 10/22/24 Rx pravastatin 40 mg tablet 40 mg PO DAILY #90 tabs 09/10/24 10/22/24 Rx dapagliflozin propanediol 10 mg 10 mg PO DAILY #30 tabs 09/23/24 10/22/24 Rx tablet rosuvastatin 20 mg tablet 20 mg PO DAILY 10/22/24 10/22/24 History Allergies Allergy/AdvReac Type Severity Reaction Status Date / Time adhesive tape AdvReac Severe TEARS SKIN Verified 10/22/24 13:11 atorvastatin AdvReac Severe Joint Pain Verified 10/22/24 13:00 Exam Narrative: On exam he has redness and erythema about the olecranon bursa he has got opening about 8 millimeters across. He has good but the granulation tissue there and drainage. Neurologically appears to be grossly intact. He has good motion of his elbow. Eyes: General: appearance normal, both eyes and all related structures Neck: Neck: supple Resp: Effort & Inspection: normal respiratory effort Cardio: Rate: regular rate Rhythm: regular rhythm Assessment and Plan Assessment and plan (1) Infection of left olecranon bursa: Code(s): M71.122 - Other infective bursitis, left elbow Status: Acute Assessment and Plan: Patient has an infected olecranon bursa left. He has failed conservative treatment. It has been going on for 5 to 6 months he liked this debrided close to possible. I have discussed this with him including the risks, benefits, limitations, and alternatives in detail. Will proceed per his request. He he realizes that the sometimes is difficult to get the heel in the infection can recur.
[2024-10-27] VITALS (8 sets, daily range): BP systolic 108–143; BP diastolic 59–86; PULSE 71–93; RESP 14–16; TEMP 36.2–36.4; O2SAT 96–99; BMI 32.4
--- OUTSIDE RECORDS SUMMARY | 2024-10-27 02:52 | XMS_ITS | Clinical Summary ---
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
--- OUTSIDE RECORDS SUMMARY | 2024-10-27 02:52 | XMS_ITS | Clinical Summary ---
Author Organization [facility] Address [facility] [facility] [place] [address] Care Team Providers Care Superintendent Distribution Name Role Phone Michelle Garcia MD Primary Care Provider [phone] Dennis Christian MD Unavailable Source Comments [facility],non-owned Affiliates and Associated Physician Practices is amultiple site organization consisting of ambulatory clinics and hospital sitesin [place], [place], [place] and [place]. This disclosure is being madepursuant to the Care Everywhere program and may not contain all information available regarding this patient. Last updated 18.[facility] Allergies No known active allergies Medications * [...] (FLONASE) 50 MCG/ACT nasal sprayIndications:A cute URI [place] 2 sprays into each nostril once daily [...] on file Legal Sex Male 9:55 AM LAMINATOR PRINTED CIRCUIT BOARDS Gender Identity Not on file Sexual Orientation Not on file Last Filed Vital Signs Vital Sign Reading Time Taken Comments Blood Pressure 132/70 07/07/2024 11:23 AM LAMINATOR PRINTED CIRCUIT BOARDS Pulse 96 07/07/2024 11:23 AM LAMINATOR PRINTED CIRCUIT BOARDS Temperature 37.3 C (99.1 F) 05/07/2019 11:38 AM LAMINATOR PRINTED CIRCUIT BOARDS Respiratory Rate 18 07/07/2024 11:23 AM LAMINATOR PRINTED CIRCUIT BOARDS Oxygen Saturation 98% 07/07/2024 11:23 AM LAMINATOR PRINTED CIRCUIT BOARDS Inhaled Oxygen Concentration - - Weight 96.2 kg (212 lb) 07/07/2024 11:23 AM LAMINATOR PRINTED CIRCUIT BOARDS Height 172.7 cm (5' 8 ) 07/07/2024 11:23 AM LAMINATOR PRINTED CIRCUIT BOARDS Body Mass Index 32.23 07/07/2024 11:23 AM LAMINATOR PRINTED CIRCUIT BOARDS Plan of Treatment Upcoming Encounters Date Type Department Care Team (Late st Contact Info) Description 11/05/2024 11:00 AM CDT Office Visit [facility] - Rheumatology [address] [facility] [address] [place] [address] [place] [address] [facility] [address] [place] [address] Health Maintenance Due Date Last [...] age to complete this topic Insurance MEDICARE [facility] [place] [id number] [employer] Care Teams Superintendent Distribution Relationship Specialty Start Date End Date Michelle Garcia MD [address] [place], [place] [id number] PCP - General Family Medicine 7/31/23 [place] [address] [place] [address] Rheumatology 10/01/23
--- OUTSIDE RECORDS SUMMARY | 2024-10-27 02:52 | XMS_ITS | Referral Summary ---
Author Organization [facility] [address] 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
--- OUTSIDE RECORDS SUMMARY | 2024-10-27 02:52 | XMS_ITS | Encounter Summary ---
Author Organization [facility] Address [address] [facility] [place] [address] Care Team Providers Care Machinery Erector Name Role Phone Michelle Garcia MD Primary Care Provider [phone] Dennis Christian MD Unavailable Encounter Details Date Type Department Care Team (Late Contact Info) Description 05/26/2024 Lab Requisition [facility] - DermPath Lab [address] [place] [phone] [place] [address] [address] Social History Tobacco Use Types Packs/Day Years Used Date Smoking Tobacco: Former Pipe Q uit: 1975 Smokeless Tobacco: Never PHQ-2 Answer Date Recorded Patient Health Questionnaire-2 Score 0 01/30/2024 Sex and Gender Information Value Date Recorded Sex Assigned at Not on file Legal 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 Male 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 Gender Identity Not on file Sexual Orientation Not on file documented as of this encounter Plan of Treatment Upcoming Encounters Date Type Department Care Team (Late Contact Info) Description 11/05/2024 11:00 AM CDT Office Visit [facility] - Rheumatology [address] [address] [place] [address] [address] documented as of this encounter Procedures Procedure Name Priority Date/Time Associated Diagnosis Comments DERMATOPATHOLOGY Routine 05/21/2024 3:33 AM HARDBOARD COATING MACHINE OPERATOR documented in this encounter Results * DERMATOPATHOLOGY (05/21/2024 3:33 AM HARDBOARD COATING MACHINE OPERATOR) Case Report Dermatopathology Report Case: [id number] Authorizing Provider: Arnold Hahn MD Collected: 05/21/2024 03:33 AM Ordering Location: [facility] - Received: 05/26/2024 02:02 PM DermPath Lab Pathologist: Harleen Mckinney MD Specimens: A) - Skin, left proximal forearm B) - Skin, left distal forearm C) - Skin, right lateral elbow 4 2:03 PM [facility] DERMATOPATHOLOGY LABORATORY Final Diagnosis [...] (see microscopic description and comment) 2:03 PM [facility] DERMATOPATHOLOGY LABORATORY Clinical History A-B: Rash; R/O Eczema, Contact Dermatitis, CTCL C: Neoplasm of Uncertain Behavior of Skin; R/O Dysplastic Nevus of Skin; Seborrheic Keratosis, Inflamed Seborrheic Keratosis, Melanoma of Skin 4 2:03 PM [facility] DERMATOPATHOLOGY LABORATORY Gross Description [...] 8x7x1 mm. Jar 0. 4 2:03 PM [facility] DERMATOPATHOLOGY LABORATORY Microscopic Description [...] Clinical correlation is recommended. 4 2:03 PM [facility] DERMATOPATHOLOGY LABORATORY Disclaimer An external and internal positive and negative controls are appropriate for the histochemical, immunohistochemical and immunofluorescence stain(s) in this case (if any), except where stated explicitly. The performance characteristics of the stain(s) cited in this report were developed and its performance characteristic determined by the Dermatopathology Laboratory at [facility] directed by Dr. Santos Savage. These tests need not be, and therefore are not, approved by the [place] Food and Drug Administration. The tests are used for clinical purposes. Billing Codes Specimen Charges Stain Charges 28064 18214 37194 1 1 1 18799 79927 35424 37383 68097 06130 61580 1 1 1 1 1 1 1 4 2:03 PM HARDBOARD COATING MACHINE OPERATOR DERMATOPATHOLOGY LABORATORY Embedded Images 4 2:03 PM HARDBOARD COATING MACHINE OPERATOR DERMATOPATHOLOGY LABORATORY Pathology/Cytology TISSUE SPECIMEN FROM SKIN / Unknown 05/21/2024 3:33 AM HARDBOARD COATING MACHINE OPERATOR 05/26/2024 2:02 PM HARDBOARD COATING MACHINE OPERATOR Miscellaneous samples (specimen) TISSUE SPECIMEN FROM SKIN / Unknown 05/21/2024 3:33 AM HARDBOARD COATING MACHINE OPERATOR 05/26/2024 2:02 PM HARDBOARD COATING MACHINE OPERATOR Miscellaneous samples (specimen) TISSUE SPECIMEN FROM SKIN / Unknown 05/21/2024 3:33 AM HARDBOARD COATING MACHINE OPERATOR 05/26/2024 2:02 PM HARDBOARD COATING MACHINE OPERATOR Arnold Hahn MD LAB - PATHOLOGY/CYTOLOGY O RDERABLES Final Result DERMATOPATHOLOGY LABORATORY [facility] - Department of Dermatology [facility] [address] [place] [address], [address] [phone] documented in this encounter Visit Diagnoses Not on filedocumented in this encounter Care Teams Machinery Erector Relationship Specialty Start Date End Date Michelle Garcia MD [address] [place] [address] PCP - General Family Medicine 01/22/23 [place] [address] [place] [phone] Rheumatology 10/01/23 documented as of this encounter
--- OUTSIDE RECORDS SUMMARY | 2024-10-27 02:52 | XMS_ITS | Encounter Summary ---
Author Organization [facility] Address [address] [facility] [place] [address] Care Team Providers Care Lead Technical Architect Name Role Phone Michelle Garcia MD Primary Care Provider [phone] Dennis Christian MD Unavailable Encounter Details Date Type Department Care Team (Late st Contact Info) Description 05/09/2024 Lab Requisition [facility] - DermPath Lab [address] [place] [phone] [place] [address] [address] Social History Tobacco Use Types Packs/Day Years Used Date Smoking Tobacco: Former Pipe Q uit: 1975 Smokeless Tobacco: Never PHQ-2 Answer Date Recorded Patient Health Questionnaire-2 Score 0 01/30/2024 Sex and Gender Information Value Date Recorded Sex Assigned at Not on file Legal Sex Male 9:55 AM CAPSULE INSPECTOR Gender Identity Not on file Sexual Orientation Not on file documented as of this encounter Plan of Treatment Upcoming Encounters Date Type Department Care Team (Late Contact Info) Description 11/05/2024 11:00 AM CDT Office Visit [facility] - Rheumatology [address] [address] [place] [address] [address] documented as of this encounter Procedures Procedure Name Priority Date/Time Associated Diagnosis Comments DERMATOPATHOLOGY Routine 05/08/2024 3:33 AM CAPSULE INSPECTOR documented in this encounter Results * DERMATOPATHOLOGY (05/08/2024 3:33 AM CAPSULE INSPECTOR) Case Report Dermatopathology Report Case: [id number] Authorizing Provider: Arnold Hahn MD Collected: 05/08/2024 03:33 AM Ordering Location: [facility] - Received: 05/09/2024 01:30 PM DermPath Lab Pathologist: Harleen Mckinney MD Specimen: Skin, left proximal forearm 1:44 PM [facility] DERMATOPATHOLOGY LABORATORY Final Diagnosis Specimen A. SKIN, left proximal forearm: ULCER WITH UNDERLYING DERMAL ABSCESS (L98.499) (see microscopic description and comment) 1:44 PM [facility] DERMATOPATHOLOGY LABORATORY Clinical History Rash; R/O Eczema, Contact Dermatitis, CTCL, Bullous Pemphigoid 1:44 PM [facility] DERMATOPATHOLOGY LABORATORY Gross Description Specimen A: Received is one formalin filled container labeled with the patient's name and designated left proximal forearm. The specimen consists of a punch biopsy measuring 4x4x3 mm. Jar 0. 1:44 PM [facility] DERMATOPATHOLOGY LABORATORY Microscopic Description Specimen [...] sections were obtained and reviewed. 1:44 PM [facility] DERMATOPATHOLOGY LABORATORY Disclaimer An external and internal positive and negative controls are appropriate for the histochemical, immunohistochemical and immunofluorescence stain(s) in this case (if any), except where stated explicitly. The performance characteristics of the stain(s) cited in this report were developed and its performance characteristic determined by the Dermatopathology Laboratory at [facility], directed by Dr. Santos Savage. These tests need not be, and therefore are not, approved by the [place] Food and Drug Administration. The tests are used for clinical purposes. Billing Codes Specimen Charges Stain Charges 63597 1 69278 12144 1 1 4 1:44 PM [facility] DERMATOPATHOLOGY LABORATORY Embedded Images 1:44 PM [facility] DERMATOPATHOLOGY LABORATORY Pathology/Cytolo gy TISSUE SPECIMEN FROM SKIN / Unknown 05/08/2024 3:33 AM CAPSULE INSPECTOR 05/09/2024 1:30 PM CAPSULE INSPECTOR Arnold Hahn MD LAB - PATHOLOGY/CYTOLOGY O CRUZ Final Result DERMATOPATHOLOGY LABORATORY [facility] - Department of Dermatology [facility] [address] [place] [address], [address] [phone] documented in this encounter Visit Diagnoses Not on filedocumented in this encounter Care Teams Lead Technical Architect Relationship Specialty Start Date End Date Michelle Garcia MD [address] [place] [address] PCP - General Family Medicine 01/22/23 [place] [address] [place] [phone] Rheumatology 10/01/23 documented as of this encounter
--- OUTSIDE RECORDS SUMMARY | 2024-10-27 02:52 | XMS_ITS | Clinical Summary ---
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
[2024-10-27 09:44] LABS: Glucose Point of Care 129 mg/dl (65-105)
--- NOTE | 2024-10-27 09:47 | P.PNAN_ITS ---
Anes - Initial Pre Proc Eval Procedure: Operation Date: 10/27/24 11:30 Proposed Procedures p Debridement Incision and Drainage Left Elbow - Daniel Washington MD Date/Time: 10/27/24 09:47 Surgeon: Daniel Washington MD Pre Op Diagnosis: infect Lt Olecranon Bursa Patient Data Age: 79 Gender: M Height: 1.73 m Weight: 90.75 kg Allergies Allergy/AdvReac Type Severity Reaction Status Date / Time adhesive tape AdvReac Severe TEARS SKIN Verified 10/22/24 13:11 atorvastatin AdvReac Severe Joint Pain Verified 10/22/24 13:00 Home Medications ?Medication ?Instructions ?Recorded ?Confirmed ?Type blood sugar diagnostic (Blood #10 ea 09/22/19 10/21/24 History Glucose Test strips) blood-glucose meter #1 ea 09/22/19 10/21/24 History lancets 30 gauge #25 ea 09/22/19 10/21/24 History finasteride 5 mg tablet 10 mg PO DAILY 11/01/22 10/22/24 History celecoxib 200 mg capsule (Celebrex) 200 mg PO DAILY #30 caps 07/04/23 10/22/24 Rx blood sugar diagnostic (OneTouch #100 ea 07/12/23 10/21/24 Rx Ultra Test strips) metformin 500 mg tablet,extended 2,000 mg (4 x 500 mg) PO QPM #360 09/25/23 10/22/24 Rx release 24 hr tabs allopurinol 300 mg tablet 300 mg PO DAILY #90 tabs 11/22/23 10/22/24 Rx triamcinolone acetonide 0.1 % 1 applic topical BID #80 grams 03/20/24 10/22/24 Rx topical cream lisinopril 20 mg tablet 20 mg PO DAILY #90 tabs 04/16/24 10/22/24 Rx tamsulosin 0.4 mg capsule See Rx Instructions .Route 08/05/24 10/22/24 Rx .COMPLEX #90 caps glimepiride 2 mg tablet 2 mg PO QAM #90 tabs 09/10/24 10/22/24 Rx pravastatin 40 mg tablet 40 mg PO DAILY #90 tabs 09/10/24 10/22/24 Rx dapagliflozin propanediol 10 mg 10 mg PO DAILY #30 tabs 09/23/24 10/22/24 Rx tablet rosuvastatin 20 mg tablet 20 mg PO DAILY 10/22/24 10/22/24 History Laboratory Tests 10/27/24 09:35 POC Capillary Glucose 129 H mg/dl (65-105) Patient hx anesthesia problems: none Family hx anesthesia problems: none Results Review: All pre-operative results and documents have been reviewed as part of the pre- operative evaluation. PMFSH Past Medical History Medical History Right shoulder pain Left knee DJD Left knee pain Left shoulder pain Aortic stenosis Hyperlipidemia Osteoarthritis Osteoarthritis of left knee Osteoarthritis of right knee Surgical History Surgical History History of left knee surgery (~1959) History of hernia repair (~1985) History of vasectomy (~1975) History of hydrocelectomy (~1986) History of hernia repair (~1952) History of total right hip arthroplasty (~03/2019) Family History Family History Father Cerebrovascular accident Other Family history of atrial fibrillation Family history of cardiovascular disease Social History Social History Smoking status: Never smoker Second hand tobacco smoke exposure: No Alcohol intake: current Substance use: never Do You Feel Safe in your Home?: Yes Lack of Transportation: No Lack of Food: Never True Current Housing: I Have Housing Concerned About Future Housing: No Difficulty Paying Gas/Electric Bills: No Difficulty Paying for Meds: No Currently Unemployed: No Education: Master's Degree or Higher Difficulty w/ Childcare or Family Care: No Living arrangements: with family Occupation/Education: retired Gender identity (if verbalized by the patient): Male Sexual Orientation (if Verbalized by the Patient): Straight or Heterosexual Spiritual care concerns: No Agree to blood products: Yes Anes - Eval Final PreProcedure Day of Procedure 10/27/24 09:47 Patient weight: overweight Heart: regular rate and rhythm Lungs: clear to auscultation Airway: Mallampati scale class II Neurological: alert and oriented Last oral intake: >/= 8 hours ASA classification: III Emergent: no Anesthetic plan: proceed Anesthesia type and monitoring: general LMA and standard monitoring Results Review: All pre-operative results and documents have been reviewed as part of the pre- operative evaluation. Informed Consent: The patient's anesthetic plan and its attendant risks and benefits were discussed with the patient/family/POA. Questions were solicited and answers provided to the satisfaction of the patient/family/POA.
[2024-10-27] MEDS: ACETAMINOPHEN 500 MG TABLET 1000 MG PO (09:56)
[2024-10-27] MEDS: KETOROLAC 15 MG/ML VIAL (*BKC) IV PUSH (09:56)
[2024-10-27] MEDS: LACTATED RINGERS 1,000 ML 30 ML IV CONT ×2 (09:56→11:55)
--- NOTE | 2024-10-27 10:43 | WPDHPUPDATE1 ---
History and Physical Update Update Date/Time: 10/27/24 10:43 History and Physical has been reviewed, including an updated exam of the patient. There are NO changes in the patient's condition. Risks, benefits, and alternatives have been discussed and questions answered. Patient agrees to proceed with procedure.
[2024-10-27] MEDS: ceFAZolin 2 GM/D5W 50 ML 2 GM/50 ML BAG IVPB (11:04)
--- NOTE | 2024-10-27 11:39 | P.OP_ITS ---
Procedure Note - Detailed Date of Procedure 10/27/24 Pre-op Diagnosis Infected Left Olecranon Bursa Post-op Diagnosis Same Procedure Performed Debridement irrigation and closure Surgeon Daniel Washington MD Combination Machine Tool Operator Claude Anesthesia General Description of Procedure Patient was patient was brought to operating room #8. He was placed on the operating table and sterilely prepped and draped in usual manner. A longitudinal incision made, ellipsing the open area of the olecranon bursa. Dissection carried down to the thickened olecranon bursa. This was thoroughly debrided. The remainder of the tissues looked clean. Cultures were taken. The wound was thoroughly irrigated. At this point, the wound was closed with 2-0 Vicryl and 3-0 Prolene. A sterile dressing was applied. Patient tolerated the procedure well. Cultures were sent during the case. Estimated Blood Loss 10 Drains No Packing No Complications No immediate complications Condition Stable Disposition PACU [facility] Billing Surgery - Charge Forward: Surgery Billing (53057 Debridement olecranon bursa)
[2024-10-27 12:09] LABS: Glucose Point of Care 92 mg/dl (65-105)
== END 2024-10-27 14:10 | disposition home or self-care (01) ==
PROVIDERS: PCP Family Medicine; Visit Provider Orthopaedic Surgery
PROC: (CPT 24105; principal; 2024-10-27 11:30)
DX: M71.122 Other infective bursitis, left elbow (principal); Z79.84 Long term (current) use of oral hypoglycemic drugs
CPT/HCPCS: 24105; 82948; 87070; 87075; 87205; A9270; J0690; J1885; J1938; J2003; J2405; J2704; J3010; J7120